=== PATIENT | male | born 1985 | race Caucasian/White ===

== ENCOUNTER → 2016-05-15 | Outpatient (CLI) | payer OTHER | END | disposition home or self-care (01) | LOC: C.PATHSPEC 17:38 | PROVIDERS: ATTEND Plastic Surgery | DX: L98.8 Other specified disorders of the skin and subcutaneous tissue (principal) ==

== ENCOUNTER → 2016-09-25 | Outpatient (CLI) | payer OTHER ==
[2016-09-25 13:42] LABS: ESTIMATED AVERAGE GLUCOSE 117 mg/dl; HA1C FLAG Normal (Normal)
[2016-09-25 13:44] LABS: ALT/SGPT 39 U/L (12-78); BLOOD UREA NITROGEN 17 mg/dl (7-18); BUN/CREATININE RATIO 17.3 (10-20); CARBON DIOXIDE 27 mmol/L (21-32); CHLORIDE 106 mmol/L (98-107); CREATININE 0.98 mg/dl (0.60-1.40); GLUCOSE 84 mg/dl (70-99); POTASSIUM 4.4 mmol/L (3.5-5.1); SODIUM 140 mmol/L (136-145)
[2016-09-25 13:46] LABS: ALB/GLOB RATIO 0.9 (0.9-2); ALKALINE PHOSPHATASE 90 U/L (45-117); AST/SGOT 23 U/L (15-37)
[2016-09-25 13:49] LABS: CALCIUM 9.6 mg/dl (8.5-10.1)
== END | disposition home or self-care (01) ==
LOC: C.LAB1850 11:50
PROVIDERS: ATTEND Family Medicine
DX: E55.9 Vitamin D deficiency, unspecified (principal); I10 Essential (primary) hypertension; R73.02 Impaired glucose tolerance (oral)

== ENCOUNTER → 2017-06-16 | Outpatient (CLI) | payer OTHER ==
[2017-06-16 09:36] LABS: HEMOGLOBIN A1C 5.5 % (4.5-5.6)
[2017-06-16 09:47] LABS: ALBUMIN 3.8 gm/dl (3.4-5.0); ALT/SGPT 44 U/L (12-78); AST/SGOT 24 U/L (15-37); BLOOD UREA NITROGEN 14 mg/dl (7-18); CARBON DIOXIDE 27 mmol/L (21-32); CREATININE 0.95 mg/dl (0.60-1.40); GLUCOSE 96 mg/dl (70-99); SODIUM 135 mmol/L (136-145)
[2017-06-16 09:59] LABS: ALKALINE PHOSPHATASE 80 U/L (45-117); CHOLESTEROL 120 mg/dl (0-200); LDL CHOLESTEROL CALCULATED 69 mg/dl; TOTAL PROTEIN 8.2 gm/dl (6.4-8.2)
== END | disposition home or self-care (01) ==
LOC: C.LAB1850 08:17
PROVIDERS: ATTEND Family Medicine
DX: R73.02 Impaired glucose tolerance (oral) (principal); E55.9 Vitamin D deficiency, unspecified; I10 Essential (primary) hypertension

== ENCOUNTER 2022-03-11 18:37 | Inpatient (IN) ==
[2022-03-11 19:56] LABS: Basophils # (auto) 0.05 K/uL (0-0.2); Basophils % (auto) 0.3 %; Eosinophils # (auto) 0.31 K/uL (0-0.50); Eosinophils % (auto) 1.7 %; Hematocrit (blood only) 43.4 % (40.1-51.0); Hemoglobin 14.9 g/dl (14.0-18.0); Immature Granulocytes # (auto) 0.22 K/uL (0.00-0.02); Immature Granulocytes % (auto) 1.2 %; Lymphocytes # (auto) 3.86 K/uL (1.2-3.4); Lymphocytes % (auto) 21.8 %; Mean Corpuscular Hemoglobin 28.3 pg (25.0-34.0); Mean Corpuscular Hgb Conc 34.3 g/dL (32.0-36.0); Mean Corpuscular Volume 82.5 fL (80.0-100.0); Mean Platelet Volume 10.4 fL (9.4-12.4); Monocytes # (auto) 1.86 K/uL (0.24-0.82); Monocytes % (auto) 10.5 %; Neutrophils # (auto) 11.44 K/uL (1.4-6.5); Neutrophils % (auto) 64.5 %; Platelet Count 385 K/uL (130-400); RDW Coefficient of Variation 12.6 % (11.5-14.5); RDW Standard Deviation 38.1 fL (36.4-46.3); Red Blood Count 5.26 M/uL (4.63-6.08); White Blood Count 17.74 K/ul (4.8-10.8)
[2022-03-11 20:26] LABS: BUN Creatinine Ratio 9.9 (10-20); Calcium 9.7 mg/dl (8.5-10.1); Creatinine Clr Calc Pharmacy 162.6 ml/min; Est GFR (Non-African American) 109.6 ml/min; Potassium 4.3 mmol/L (3.5-5.1)
[2022-03-11] MEDS ORDERED: cefTRIAXone SODIUM 2,000 MG/70 ML BAG IV STA (23:56)
[2022-03-11] MEDS ORDERED: SODIUM CHLORIDE 0.9% 1000ML 1,000 ML IV ONE (23:56)
[2022-03-11] MEDS ORDERED: VANCOMYCIN CONSULT ACTIVE PRN (23:58)
[2022-03-11] MEDS ORDERED: VANCOMYCIN HCL 2,750 MG in SODIUM CHLORIDE 0.9% 500 ML IV ONE (23:58)
--- NOTE | 2022-03-12 00:09 | History & Physical Report ---
Date of Service March 11, 2022 Assessment & Plan (1) Palpable purpura: Plan: 36 y/o male w/ morbid obesity, HTN, impaired glucose tolerance, and history of colovesical fistula s/p partial colectomy who presents w/ 10 days of worsening palpable petechial/purpuric rash of mainly his bilateral lower extremities, sparing groin areas and palms/soles. - etiology unknown, but w/ essentially negative relevant histories except of small/large intestinal and bladder fistula, leading differential is autoimmune. 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 for some etiologies, would consider organ involvement; defer echo for now - overall, nonseptic and noninfectious presentation. lower suspicion for RMSF, meningococcemia - w/ mild sinus tach and notable leukocytosis 17s; likely as part of vasculitic inflammatory process - check ESR CRP, MATTIE, ANCA, anti dsdna, calprotectin, folate, b12, RF, RMSF, HIV, hepatitis panel, peripheral smear, urinalysis, did not order STEFANIE, lupus, [employer], complement - lyme IgM equivocal; lower suspicion per HPI - antistreptolysin O Ab pending - consult rheumatology - consider biopsy to confirm cutaneous vasculitis (2) Pain and swelling of right lower extremity: Plan: - most likely 2/2 vasculitic inflammatory process - will check venous duplex to r/o dvt - cover for cellulitis for now. checking nasal mrsa. will descalate from vanc+ceftriaxone (3) History of colon resection: Plan: - per patient, fistulas from small intestine to colon to bladder were 2/2 severe diverticulosis. has since had surgery ~2 years ago and fully recovered - will consider in differential of IBD (4) Hypertension: Plan: - hold home lisinopril in setting of higher risk of BLANK in context of possible vasculitis (5) Impaired glucose tolerance: Plan: - check a1c. hold home metformin. Check glucometer HS. Glucose per AM BMP. Plan FEN/GI: HH, low Na. No maintenance IV fluids. ppx: scds only code: full dispo: med surg History of Present Illness Chief Complaint: bilateral lower extremity rash Primary Care Provider: NO PCP 36 y/o male w/ morbid obesity, HTN, impaired glucose tolerance, and history of colovesical fistula s/p partial colectomy who presents w/ 10 days of worsening rash of lower extremities. He denies history of similar. Initially, this started as a few red spots on his thighs. He started having more spots down his leg and up his lower abdomen. He denies rash of palms/soles, back, or face. Since 2 days ago, he has had erythema and discomfort from his ankle swelling, worse on right. Patient denies tick exposures, pets, recent travel, medication changes, constitu tional symptoms (fever/chills, hot/cold, unintentional weight loss), URI or GI symptoms, sick contact (works as HS teacher), STI concerns, allergen/insect exposure, IVDU, recent immunizations or family history of IBD or blood clots, or autoimmune disease. He otherwise feels at baseline. Denies tobacco, marijuana, or other substance use. Rare etoh. ED course: vanc+ceftriaxone. NSS 1L bolus. Labs notable for leukocytosis 10.04 (03/10)->17.74. Lyme IgM equivocal. Allergies Allergy/AdvReac Type Severity Reaction Status Date / Time No Known Allergies Allergy Verified 03/12/22 00:15 Home Medications Medication Instructions Recorded Confirmed Type cholecalciferol (vitamin D3) 50 2,000 units PO DAILY #30 caps 12/21/18 03/12/22 History mcg (2,000 unit) capsule cyanocobalamin (vitamin B-12) 1,000 mcg sublingual DAILY 12/21/18 03/12/22 History 1,000 mcg sublingual tablet lisinopril 10 mg tablet 10 mg PO DAILY #90 tabs 05/07/21 03/12/22 Rx metformin 500 mg tablet,extended 1,000 mg PO DAILY #180 tabs 05/07/21 03/12/22 Rx release 24 hr clindamycin phosphate 1 % topical 1 applic topical .COMPLEX #30 grams 03/03/22 03/12/22 Rx gel Past Med/Surg History Medical History (Updated 03/12/22 @ 04:47 by Guicho Hunter MD) Colovesical fistula History of diverticulitis Hypertension Impaired glucose tolerance Morbid obesity Surgical History (Updated 03/12/22 @ 03:40 by Guicho Hunter MD) H/O wrist surgery History of colon resection Family History Other Hypertension Denies family history of Ovarian cancer Prostate cancer Breast cancer Colorectal cancer Social History Smoking Status: Never smoker Second Hand Exposure: No; Do You Dip or Chew Tobacco: No; Hx Alcohol Use: Yes Alcohol type: hard liquor Hx Substance Use: No Preferred Language: Azerbaijani Communication Ability: Effective Visual Impairment: No Limitations Hearing Ability: Normal Registration Manager Required: No Beliefs That Will Affect Care: None marital status: Single Current Living Situation: Parent current occupational status: employed Other Information That Helps Us Care for You: No Feels Safe at Home: Yes Safety Concerns: Feels Safe At This Time caffeine: Yes Dental Care, Regularly: Yes Seatbelt Use: always Assistive Devices: Contacts Review of Systems Review of Systems: All systems reviewed & are unremarkable except as noted in HPI & below Denies paresthesias, diarrhea, vomiting, bloody stool, melena, dysuria, chest pain, SOB. No blurry vision. 20 lb intentional wt loss past year, on metformin. + mild headache, attributes to not eating Physical Exam Physical Exam: General: Grossly A&O. NAD. Cooperative. HEENT: Atraumatic, normocephalic. EOMI. PERRL. Pulm: CTAB. -wheezes, -rales, -rhonchi. No respiratory distress. Cardiac: RRR, -mrg. R ankle w/ 2+ pitting edema. Abdominal: Nontender, nondistended, soft. Integ: Numerous non confluent 5mm-3cm circular palpable petechial vs purpuric lesions of bilateral lower extremity from thighs down to ankles, reportedly sparing groin area. Non-blanching. There is similar rassh of lower abd, but more confluent at that location. No rash of back. No facial or mucosal involvement. R ankle w/ erythema and warmth to touch. Neuro: No focal deficits. Results & Data Results & Data ([facility]) Vital Signs (Past 12 Hours) Vital Signs Temp Pulse Resp BP Pulse Ox O2 Del Method 03/11/22 19:13 37 C 97 H 18 154/91 H 98 Room Air Laboratory Results CBC 03/11/22 Range/Units 19:23 WBC 17.74 H (4.8-10.8) K/ul RBC 5.26 (4.63-6.08) M/uL Hgb 14.9 (14.0-18.0) g/dl Hct 43.4 (40.1-51.0) % Plt Count 385 (130-400) K/uL Neut # (Auto) 11.44 H (1.4-6.5) K/uL Lymph # (Auto) 3.86 H (1.2-3.4) K/uL [place] # (Auto) 1.86 H (0.24-0.82) K/uL Eos # (Auto) 0.31 (0-0.50) K/uL Baso # (Auto) 0.05 (0-0.2) K/uL Comprehensive Metabolic Panel 03/11/22 Range/Units 19:23 Sodium 137 (136-145) mmol/L Potassium 4.3 D (3.5-5.1) mmol/L Chloride 103 (98-107) mmol/L Carbon Dioxide 27 (21-32) mmol/L BUN 9 (6-23) mg/dl Creatinine 0.91 (0.6-1.4) mg/dl Glucose 80 (70-99(Fasting)) mg/dl Calcium 9.7 (8.5-10.1) mg/dl Intake and Output 03/11/22 03/11/22 03/12/22 14:59 22:59 06:59 Other: Weight 141.7 kg Weight Measurement Method Chair Scale Patient Weight 03/12/22 06:59 Weight 141.7 kg CBC Results Results Complete Blood Count Results: RBC 5.00 M/uL (4.63-6.08) 03/12/22 WBC 16.22 K/ul (4.8-10.8) H 03/12/22 Hgb 14.3 g/dl (14.0-18.0) 03/12/22 Hct 41.9 % (40.1-51.0) 03/12/22 Plt Count 351 K/uL (130-400) 03/12/22 Code Status & VTE Plan Code Status full VTE Prophylaxis Plan VTE Prophylaxis will be ordered: Yes Supervising Physician Co-Signing Physician Notes Patient seen and examined, chart reviewed, case discussed with Dr. Hunter and I agre e with the assessment and plan as above Patient with palpable purpura and petechial rash on bilateral LE as well as pain in bilateral ankles, swelling in left No additional constitutional symptoms No personal history of autoimmune disease On exam patient has non-blanchable petechiae and purpura on bilateral LE Right ankle and calf warm, tender, swollen No mucosal lesions No rash on palms or soles No other findings Labs and images reviewed Purpuric rash concerning for vasculitis - infectious vs inflammatory -Check rheumatologic labs -Check tick borne labs -Rheumatology consultation appreciated -Check doppler RLE -Remainder as above Resident Activity Tracking Resident Involvement: Resident Care Provided Care Provided: Adult [facility]
--- NOTE | 2022-03-12 00:19 | Emergency Department Note ---
Impression & Plan Cellulitis, Petechial rash, Leukocytosis ED Provider Note NAME: ARA ESTRADA III AGE: 36 SEX: M : 1985 ARRIVES VIA: Walk-In INFORMANT: Patient ED PROVIDER(S): Edy Quintero DO CHIEF COMPLAINT: rash and leg pain HPI: Patient is a 36-year-old male who presents to the ER for rash in his bilateral lower extremities. Patient notes that this has progressed over the past week. Mom checked blood work as an outpatient and was equivocal for Lyme but otherwise was fairly unremarkable. Redness on the right vasquez occurred within the past 24 hours and has been spreading. Patient admits to feeling cold. No headache or change in vision. No chest pain or shortness of breath. No nausea, vomiting, or diarrhea. No dysuria, urgency, or frequency. No other exacerbating or remitting factors. Previous history of diverticulitis but otherwise unremarkable history. No tick bites that he is aware of. ROS: See above HPI for pertinent positives & negatives. A total of 10 systems reviewed and were otherwise negative. PAST MEDICAL HISTORY:See Below PAST SURGICAL HISTORY:See Below FAMILY HISTORY:See Below SOCIAL HISTORY:See Below HOME MEDICATIONS:See Below ALLERGIES:See Below VITALS:See Below PHYSICAL EXAMINATION: GENERAL: Sitting up in bed, alert, well appearing, well nourished, no distress, non-toxic EYE EXAM: normal conjunctiva. OROPHARYNX:mucous membranes are moist LUNGS: Clear to auscultation. Normal chest wall mechanics HEART: no murmurs, S1 normal and S2 normal ABDOMEN: abdomen soft, non-tender, normo-active bowel sounds, no masses, no re bound or guarding. BACK: Back is symmetrical on inspection and there is no deformity, no midline te nderness, no CVA tenderness. SKIN: Palpable purpura bilateral which are nonblanching. Negative Nikolsky. Skin is warm and erythematous and tender on the right lower vasquez circumferentially. DPs are 2 out of 4. UPPER EXTREMITIES: upper extremities are grossly normal. LOWER EXTREMITIES: No pitting edema. NEURO EXAM: Normal sensorium, cranial nerves II-XII grossly intact, normal speech, no gross weakness of arms, no gross weakness of legs. MEDICAL DECISION MAKING: Patient is a 36-year-old male who presents to the ER for the above complaint. IV was established blood work was obtained. Labs show leukocytosis of 17.7 thousand. No significant anemia. BMP was unremarkable. Patient did have a recent equivocal Lyme test which was drawn this week in the workup for the rash. With this he was given IV Rocephin. Also placed on Vanco in case there is MRSA as mom and Dad are physicians. Patient was updated bedside. Discussed with Sona White for further evaluation. Triage Nursing notes reviewed. Limited review of prior medical records performed Vital Signs: reviewed and remarkable for tachy and HTN Differential diagnosis: Cellulitis, abscess, MRSA infection, DVT, necrotizing fasciitis, dermatitis, gerardo g eruption, allergic reaction, as well as other pathologies. ER treatment provided: See below Diagnostics interpreted by me: ECG: none Cardiac Monitoring: An order was placed for continuous cardiac monitoring. The monitor shows a rate of 92 with sinus rhythm. Laboratory studies: As stated above and show below. Imaging studies: See below Consultation(s): Discussed with Sona White for further evaluation Procedures: none Critical Care: None Past Med/Surg History Surgical History (Updated 03/12/22 @ 00:29 by Guicho Hunter MD) H/O wrist surgery History of colon resection Family History Other Hypertension Denies family history of Ovarian cancer Prostate cancer Breast cancer Colorectal cancer Social History Smoking Status: Never smoker Second Hand Exposure: No; Hx Alcohol Use: Yes Hx Substance Use: No Preferred Language: Mohawk Visual Impairment: No Limitations Hearing Ability: Normal Beliefs That Will Affect Care: None marital status: Single Current Living Situation: Family current occupational status: employed Feels Safe at Home: Yes caffeine: Yes Dental Care, Regularly: Yes Seatbelt Use: always Allergies Allergies Allergy/AdvReac Type Severity Reaction Status Date / Time No Known Allergies Allergy Verified 03/12/22 00:15 Home Meds Home Medications Medication Instructions Recorded Confirmed cholecalciferol (vitamin D3) 50 2,000 units PO DAILY #30 caps 12/21/18 03/12/22 mcg (2,000 unit) capsule cyanocobalamin (vitamin B-12) 1,000 mcg sublingual DAILY 12/21/18 03/12/22 1,000 mcg sublingual tablet Previous Rx's Medication Instructions Recorded lisinopril 10 mg tablet 10 mg PO DAILY #90 tabs 05/07/21 metformin 500 mg tablet,extended 1,000 mg PO DAILY #180 tabs 05/07/21 release 24 hr clindamycin phosphate 1 % topical 1 applic topical .COMPLEX #30 grams 03/03/22 gel Results & Data (ED) Vital Signs Vital Signs - 24 hr 03/11/22 19:13 03/12/22 01:11 Temperature 37 C Temperature Source Temporal Artery Scan Pulse Rate 97 H Pulse Rate [Apical] 109 H Pulse Rhythm [Apical] Regular Pulse Strength [Apical] Normal Respiratory Rate 18 18 Respiratory Effort / Characteristics Non-Labored Spontaneous Respiratory Depth Normal Respiratory Pattern Regular Blood Pressure 154/91 H Blood Pressure [Left Arm] 132/82 Blood Pressure Mean 112 Blood Pressure Mean [Left Arm] 98 Blood Pressure Position [Left Arm] Semi-fowlers Pulse Oximetry 98 96 Oxygen Delivery Method Room Air Room Air Sepsis Recent Fever Within 48 Hours No Sepsis New/Unexplained Change in Mental Status No Sepsis Action Taken by Nursing No Action Required Laboratory Data Result diagrams: 03/11/22 19:23 03/11/22 19:23 Lab Results 03/11/22 03/11/22 03/12/22 Range/Units 19:23 19:23 00:32 WBC 17.74 H (4.8-10.8) K/ul RBC 5.26 (4.63-6.08) M/uL Hgb 14.9 (14.0-18.0) g/dl Hct 43.4 (40.1-51.0) % MCV 82.5 (80.0-100.0) fL MCH 28.3 (25.0-34.0) pg MCHC 34.3 (32.0-36.0) g/dL RDW Std Deviation 38.1 (36.4-46.3) fL RDW Coeff of Yossi 12.6 (11.5-14.5) % Plt Count 385 (130-400) K/uL MPV 10.4 (9.4-12.4) fL Immature Gran % (Auto) 1.2 % Neut % (Auto) 64.5 % Lymph % (Auto) 21.8 % [place] % (Auto) 10.5 % Eos % (Auto) 1.7 % Baso % (Auto) 0.3 % Neut # (Auto) 11.44 H (1.4-6.5) K/uL Lymph # (Auto) 3.86 H (1.2-3.4) K/uL [place] # (Auto) 1.86 H (0.24-0.82) K/uL Eos # (Auto) 0.31 (0-0.50) K/uL Baso # (Auto) 0.05 (0-0.2) K/uL Immature Gran # (Auto) 0.22 H (0.00-0.02) K/uL Sodium 137 (136-145) mmol/L Potassium 4.3 D (3.5-5.1) mmol/L Chloride 103 (98-107) mmol/L Carbon Dioxide 27 (21-32) mmol/L Anion Gap 7 (3-11) BUN 9 (6-23) mg/dl Creatinine 0.91 (0.6-1.4) mg/dl Est Cr Clr Drug Dosing 162.6 ml/min Est GFR ( Amer) 127.0 ml/min Est GFR (Non-Af Amer) 109.6 ml/min BUN/Creatinine Ratio 9.9 L (10-20) Glucose 80 (70-99(Fasting)) mg/dl Calcium 9.7 (8.5-10.1) mg/dl SARS-CoV-2, RNA, NAAT NEGATIVE (NEGATIVE) Administered Medications Vancomycin HCl 2,750 mg/ (Sodium Chloride) 555 mls @ 200 mls/hr IV NOW ONE Stop: 03/12/22 02:44 Last Admin: 03/12/22 01:06 Dose: 200 mls/hr Documented By: MARYJANE Discontinued Medications Sodium Chloride (Nss 1000ml) 1,000 mls @ 999 mls/hr IV .Q1H1M ONE Stop: 03/12/22 00:56 Last Infusion: 03/12/22 01:30 Dose: 0 mls/hr Documented By: Admin: 03/12/22 00:25 Dose: 999 mls/hr Documented By: MARYJANE Ceftriaxone Sodium (Rocephin) 2,000 mg in 70 mls @ 140 mls/hr IV NOW STA Stop: 03/12/22 00:25 Last Infusion: 03/12/22 01:05 Dose: 0 mls/hr Documented By: Admin: 03/12/22 00:26 Dose: 140 mls/hr Documented By: MARYJANE Discharge Plan Visit Data Chief Complaint: Leg Injury/Pain Stated Complaint: CELLULITIS IN BOTH LEGS ED Provider: Edy Quintero Discharge Problem: Cellulitis, Petechial rash, Leukocytosis Forms Stand Alone Forms: My [facility] IPX Prescriptions Prescriptions: No Action lisinopril 10 mg tablet 10 mg PO DAILY Qty: 90 3RF metformin 500 mg tablet extended release 24 hr 1,000 mg PO DAILY Qty: 180 3RF clindamycin phosphate 1 % gel 1 applic topical .COMPLEX Qty: 30 2RF Rx Instructions: 1 applic topical apply and gently massaginto affected area(s) TID ; cholecalciferol (vitamin D3) 2,000 unit capsule 2,000 units PO DAILY Qty: 30 cyanocobalamin (vitamin B-12) 1,000 mcg tablet, sublingual 1,000 mcg SL DAILY Referrals Referrals: PCP,NO [Physician] -
[2022-03-12 04:40] LABS: Basophils # (auto) 0.05 K/uL (0-0.2); Basophils % (auto) 0.3 %; Eosinophils # (auto) 0.11 K/uL (0-0.50); Eosinophils % (auto) 0.7 %; Hematocrit (blood only) 41.9 % (40.1-51.0); Hemoglobin 14.3 g/dl (14.0-18.0); Immature Granulocytes # (auto) 0.08 K/uL (0.00-0.02); Immature Granulocytes % (auto) 0.5 %; Lymphocytes # (auto) 2.37 K/uL (1.2-3.4); Lymphocytes % (auto) 14.6 %; Mean Corpuscular Hemoglobin 28.6 pg (25.0-34.0); Mean Corpuscular Hgb Conc 34.1 g/dL (32.0-36.0); Mean Corpuscular Volume 83.8 fL (80.0-100.0); Mean Platelet Volume 10.1 fL (9.4-12.4); Monocytes # (auto) 1.59 K/uL (0.24-0.82); Monocytes % (auto) 9.8 %; Neutrophils # (auto) 12.02 K/uL (1.4-6.5); Neutrophils % (auto) 74.1 %; Platelet Count 351 K/uL (130-400); RDW Coefficient of Variation 12.8 % (11.5-14.5); RDW Standard Deviation 38.9 fL (36.4-46.3); White Blood Count 16.22 K/ul (4.8-10.8)
[2022-03-12] MEDS ORDERED: ONDANSETRON INJ 2 MG/ML 2 ML VIAL IV PRN (04:58)
[2022-03-12 05:03] LABS: RBC Morphology Unremarkable
[2022-03-12] MEDS ORDERED: FLUARIX QUADRIVALENT 0.5 ML SYR IM ONE (05:12)
[2022-03-12 05:28] LABS: Albumin Globulin Ratio 1.2 (0.9-2); Albumin Level 4.3 gm/dl (3.4-5.0); BUN Creatinine Ratio 8.5 (10-20); Bilirubin,Total 0.9 mg/dl (0.2-1.0); C Reactive Protein 4.37 mg/dl (0-0.5); Calcium 9.3 mg/dl (8.5-10.1); Creatinine Clr Calc Pharmacy 156.7 ml/min; Est GFR (African American) 122.1 ml/min; Est GFR (Non-African American) 105.4 ml/min; Globulin 3.7 gm/dl (2.5-4.0); Magnesium 1.7 mg/dl (1.7-2.4)
[2022-03-12] MEDS: ACETAMINOPHEN 325 MG TAB PO PRN ×2 (05:36→21:15)
[2022-03-12 05:38] LABS: Appearance Urine Clear (Clear); Bacteria Urine Automated Negative (Negative); Bilirubin Urine Negative (Negative); Blood Urine Trace (Negative); Cast Urine Automated 0 /lpf (0-5); Color Urine Yellow; Epithelial Cell Urine Auto 0-5 /lpf (0-5); Glucose Urine UA Negative (Negative); Ketones Urine Negative (Negative); Leukocyte Esterase Urine Negative (Negative); Nitrite Urine Negative (Negative); Protein Urine Negative (Negative); RBC Urine Automated 0-4 /hpf (0-4); Specific Gravity Urine 1.011 (1.000-1.030); Urobilinogen Urine Negative (Negative); WBC Urine Automated 0 /hpf (0-5)
[2022-03-12 06:00] LABS: Partial Thromboplastin Time 28.6 Seconds (21.0-31.0); Prothrombin Time 11.1 Seconds (9.0-12.0)
--- NOTE | 2022-03-12 07:33 | Billing Data ---
Date of Service March 12, 2022 Coding Level of Care Code 02015 Initial Inpt Care Lvl 2
--- NOTE | 2022-03-12 07:57 | Hospitalist Progress Note ---
Date of Service March 12, 2022 Assessment & Plan (1) Palpable purpura: Plan: 36 y/o male w/ morbid obesity, HTN, impaired glucose tolerance, and history of colovesical fistula s/p partial colectomy who presents w/ 10 days of worsening palpable petechial/purpuric rash of mainly his bilateral lower extremities, sparing groin areas and palms/soles. - etiology unknown, but w/ essentially negative relevant histories except of small/large intestinal and bladder fistula, leading differential is autoimmune. 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 for some etiologies, would consider organ involvement; defer echo for now - overall, nonseptic and noninfectious presentation. lower suspicion for RMSF, meningococcemia - w/ mild sinus tach and notable leukocytosis 17s; likely as part of vasculitic inflammatory process - check ESR CRP, MATTIE, ANCA, anti dsdna, calprotectin, folate, b12, RF, RMSF, HIV, hepatitis panel, peripheral smear, urinalysis, did not order STEFANIE, lupus, BRICK PAVER, complement ESR CRP WBC elevated - lyme IgM equivocal; lower suspicion per HPI - antistreptolysin O Ab pending - consult rheumatology, consider stopping abx starting prednisone 30mg daily for possible leukocytoclastic vasculitis - consider biopsy to confirm cutaneous vasculitis - consulted dermatology (2) Pain and swelling of right lower extremity: Plan: - most likely 2/2 vasculitic inflammatory process - venous duplex negative - cover for cellulitis for now. nasal mrsa negative. started vanc+ceftriaxone, dc'd (3) History of colon resection: Plan: - per patient, fistulas from small intestine to colon to bladder were 2/2 severe diverticulosis. has since had surgery ~2 years ago and fully recovered - will consider in differential of IBD (4) Hypertension: Plan: - hold home lisinopril in setting of higher risk of BLANK in context of possible vasculitis (5) Impaired glucose tolerance: Plan: - check a1c. hold home metformin. Check glucometer HS. Glucose per AM BMP. Plan FEN/GI: HH, low Na. No maintenance IV fluids. ppx: scds only code: full dispo: med surg Admission and Anticipated Discharge Date Admission Date: March 12, 2022 Supervising Physician Co-Signing Physician Notes I also saw the patient and confirmed johnson portion of the history and physical examination. I also spoke with the on-call contestant coordinator via phone. I agree with impression and plan as noted in resident documentation. 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 He reports feeling generally wellno preceding viral type symptomsbut noted developing a rash on his right thigh which looks like a folliculitis. This was not pruritic nor painful. By Thursday morning, he had noted a more red flat rash on the bilateral lower extremities and across the lower abdominal wall (bilaterally, and inferior of the umbilicus). Again, the patient felt well throughout all of thisno fever, chills, sore throat, night sweats, fatigue, nausea, vomiting, or loose stools. No known sick contacts, although certainly with possible exposure given his occupation. Exam 122/77, 97, 16, 36.5, 96% on room air He is pleasant alert. No distress is appreciated. Neck is supple. There is no lymphadenopathy in the anterior cervical nor post anterior cervical regions. Mucous membranes are pink and moist. Posterior pharynx appears clear. Heart regular rate and rhythm Respirations are nonlabored and lungs are clear The abdomen is soft and nontender He has a flat, petechial type rash across his lower abdominal area and his lower legs, bilaterally, and fairly symmetrical. While there are a few raised more follicular type lesions on the right lower leg, most of the lesions are flat/nonpalpable. All are nonblanchable He does have some mild edema at both ankles bilaterally. Data WBC 17.74, 16.22 Hemoglobin 14.9, 14.3 Platelet count 325, 351 PT/PTT normal Sodium 137, potassium 4.0, BUN 8, creatinine 0.94 Hemoglobin A1c 5.5% AST 18, ALT 21, alkaline phosphatase 85 CRP 4.37 ESR 37 EBV, CMV titers negative. Hepatitis panel pending HIV negative. Rickettsia pending COVID negative ASO titer pending Imaging Venous Doppler of the right lower extremity is negative for DVT Impression and Plan Folliculitis versus vasculitis, favor the latter Specifically, a leukocytoclastic vasculitis. Discontinue antibiotics Start prednisone 30 mg daily Autoimmune studies are pending Lyme RAMESH was equivocal, suspect this is a false positive; Western blot pend ing Repeat CBC, CMP, ESR, and CRP in AM Dermatology will be able to see tomorrow, and could consider punch biopsy Else, if all goes well, anticipate discharge tomorrow with outpatient rheumatology follow-up arranged for early next week Subjective Patient seen at bedside, calm comfortable cooperative. He states that 10 days ago the rash on his thigh started, never had itching pain denies exposure to new clothing soaps medications, no one around has similar rashes. over the next 5 days he descoverd a similar looking rash on his abdomen, later found it was also on his legs and tops of his feet. Never appeared on soles of feet, groin area, back, chest, face, arms. Yesterday noted swelling tightness in his right leg. He has PMH raynauds, had colon resection due to severe diverticulosis with colovesicular fistula. He denies fever chills SOB chest pain abd pain diarrhea constipation weakness fatigue change in sensation. He is a high school industrial arts teacher. 2 weeks ago [place] and had to walk by a park. Review of Systems Review of Systems: see hpi Physical Exam Constitutional: WD/WN, vitals as above Eyes: PERRL, conjunctivae normal, anicteric sclerae ENMT: external ear and nose normal, oropharynx normal Neck: trachea midline, no thyromegaly Respiratory: normal respiratory effort, lungs clear to auscultation Cardiovascular: RRR, no murmur, no edema Gastrointestinal (Abdomen): Inspection/Auscultation: abdomen normal to inspection and + abdominal surgical scar Percussion/Palpation: abdomen soft; abdomen nontender Skin: diffuse evenly distributed papular petecheia noted across thighs legs feet sparing the soles, erythematous nonblanching. Similar more macular rash noted on lower anterior abdomen. No rashes noted on chest back arms of face. Results & Data Results & Data ([facility]) Vital Signs (Past 12 Hours) Vital Signs Temp Pulse Pulse Pulse Resp BP BP 03/12/22 05:01 37.6 C H 106 H 18 03/12/22 04:23 112 H 18 120/74 03/12/22 04:00 112 H 18 120/74 03/12/22 01:11 109 H 18 132/82 BP Pulse Ox O2 Del Method 03/12/22 05:01 140/86 94 Room Air 03/12/22 04:23 96 Room Air 03/12/22 04:00 95 Room Air 03/12/22 01:11 96 Room Air Diagnostic Findings Laboratory Results WBC 16.22 K/ul (4.8-10.8) H 03/12/22 03:39 RBC 5.00 M/uL (4.63-6.08) 03/12/22 03:39 Hgb 14.3 g/dl (14.0-18.0) 03/12/22 03:39 Hct 41.9 % (40.1-51.0) 03/12/22 03:39 MCV 83.8 fL (80.0-100.0) 03/12/22 03:39 MCH 28.6 pg (25.0-34.0) 03/12/22 03:39 MCHC 34.1 g/dL (32.0-36.0) 03/12/22 03:39 RDW Std Deviation 38.9 fL (36.4-46.3) 03/12/22 03:39 RDW Coeff of Yossi 12.8 % (11.5-14.5) 03/12/22 03:39 Plt Count 351 K/uL (130-400) 03/12/22 03:39 MPV 10.1 fL (9.4-12.4) 03/12/22 03:39 Immature Gran % (Auto) 0.5 % 03/12/22 03:39 Neut % (Auto) 74.1 % 03/12/22 03:39 Lymph % (Auto) 14.6 % 03/12/22 03:39 [place] % (Auto) 9.8 % 03/12/22 03:39 Eos % (Auto) 0.7 % 03/12/22 03:39 Baso % (Auto) 0.3 % 03/12/22 03:39 Neut # (Auto) 12.02 K/uL (1.4-6.5) H 03/12/22 03:39 Lymph # (Auto) 2.37 K/uL (1.2-3.4) 03/12/22 03:39 [place] # (Auto) 1.59 K/uL (0.24-0.82) H 03/12/22 03:39 Eos # (Auto) 0.11 K/uL (0-0.50) 03/12/22 03:39 Baso # (Auto) 0.05 K/uL (0-0.2) 03/12/22 03:39 Immature Gran # (Auto) 0.08 K/uL (0.00-0.02) H 03/12/22 03:39 RBC Morphology Unremarkable 03/12/22 03:39 Peripher Smr Path Cons 03/12/22 03:39 ESR 37 mm/hr (0-15) H 03/12/22 03:39 PT 11.1 Seconds (9.0-12.0) 03/12/22 05:32 INR 1.0 (0.9-1.1) 03/12/22 05:32 APTT 28.6 Seconds (21.0-31.0) 03/12/22 05:32 PTT Ratio 1.0 03/12/22 05:32 Sodium 137 mmol/L (136-145) 03/12/22 03:39 Potassium 4.0 mmol/L (3.5-5.1) 03/12/22 03:39 Chloride 104 mmol/L (98-107) 03/12/22 03:39 Carbon Dioxide 25 mmol/L (21-32) 03/12/22 03:39 Anion Gap 8 (3-11) 03/12/22 03:39 BUN 8 mg/dl (6-23) 03/12/22 03:39 Creatinine 0.94 mg/dl (0.6-1.4) 03/12/22 03:39 Est Cr Clr Drug Dosing 156.7 ml/min 03/12/22 03:39 Est GFR ( Amer) 122.1 ml/min 03/12/22 03:39 Est GFR (Non-Af Amer) 105.4 ml/min 03/12/22 03:39 BUN/Creatinine Ratio 8.5 (10-20) L 03/12/22 03:39 Glucose 111 mg/dl (70-99(Fasting)) H 03/12/22 03:39 Estimat Average Glucose 111 mg/dl 03/12/22 05:32 Hemoglobin A1c 5.5 % (4.5-5.6) 03/12/22 05:32 Calcium 9.3 mg/dl (8.5-10.1) 03/12/22 03:39 Magnesium 1.7 mg/dl (1.7-2.4) 03/12/22 03:39 Total Bilirubin 0.9 mg/dl (0.2-1.0) D 03/12/22 03:39 AST 18 U/L (13-39) 03/12/22 03:39 ALT 21 U/L (7-52) 03/12/22 03:39 Alkaline Phosphatase 85 U/L (34-104) 03/12/22 03:39 C-Reactive Protein 4.37 mg/dl (0-0.5) H 03/12/22 03:39 Total Protein 8.0 gm/dl (6.0-8.3) 03/12/22 03:39 Albumin 4.3 gm/dl (3.4-5.0) 03/12/22 03:39 Globulin 3.7 gm/dl (2.5-4.0) 03/12/22 03:39 Albumin/Globulin Ratio 1.2 (0.9-2) 03/12/22 03:39 Folate 11.02 ng/ml (>5.38) 03/12/22 05:32 Urine Color Yellow 03/12/22 05:15 Urine Appearance Clear (Clear) 03/12/22 05:15 Urine pH 8.0 (4.5-7.5) H 03/12/22 05:15 Ur Specific Peck 1.011 (1.000-1.030) 03/12/22 05:15 Urine Protein Negative (Negative) 03/12/22 05:15 Urine Glucose (UA) Negative (Negative) 03/12/22 05:15 Urine Ketones Negative (Negative) 03/12/22 05:15 Urine Blood Trace (Negative) H 03/12/22 05:15 Urine Nitrite Negative (Negative) 03/12/22 05:15 Urine Bilirubin Negative (Negative) 03/12/22 05:15 Urine Urobilinogen Negative (Negative) 03/12/22 05:15 Ur Leukocyte Esterase Negative (Negative) 03/12/22 05:15 Urine WBC (Auto) 0 /hpf (0-5) 03/12/22 05:15 Urine RBC (Auto) 0-4 /hpf (0-4) 03/12/22 05:15 U Hyaline Cast (Auto) 0 /lpf (0-5) 03/12/22 05:15 U Epithel Cells (Auto) 0-5 /lpf (0-5) 03/12/22 05:15 Urine Bacteria (Auto) Negative (Negative) 03/12/22 05:15 Nasal Screen MRSA (PCR) Negative (Negative) 03/12/22 05:15 SARS-CoV-2, RNA, NAAT NEGATIVE (NEGATIVE) 03/12/22 00:32 Impressions Venous Doppler Study 03/12/22 02:46 US venous doppler LE RT CLINICAL HISTORY: asymmetric swelling and erythea TECHNIQUE: Right lower extremity real-time compression venous ultrasound with Color Doppler imaging. Utilizing real-time ultrasonic imaging multiple real time high-resolution ultrasonic images with compression and noncompression maneuvers of the deep venous system in addition to color doppler imaging were performed from the common femoral vein through the proximal calf veins. COMPARISON: None available at the time of this dictation. FINDINGS: Exam is limited by body habitus. Currently there is normal compressibility of the deep venous system from the common femoral vein through the proximal calf veins. No superficial venous thrombosis is identified. Impression: No evidence of deep venous thrombus. ACT 112: Negative or not required by law. Electronically signed by: Adin Willingham M.D. 03/12/2022 8:45 AM Medications Administered Current Inpatient Medications Acetaminophen (Acetaminophen 325 Mg Tab) 650 mg PO Q4H PRN PRN Reason: pain/fever Stop: 04/11/22 04:57 Last Admin: 03/12/22 05:36 Dose: 650 mg Ondansetron HCl (Ondansetron Inj 2 Mg/Ml 2 Ml Vial) 4 mg IV Q6H PRN PRN Reason: Nausea Stop: 04/11/22 04:57 Prednisone (Prednisone 10 Mg Tablet) 30 mg PO DAILY DANNY Stop: 04/11/22 16:59 Resident Activity Tracking Resident Involvement: Resident Care Provided Care Provided: Adult Hospital Medicine
--- NOTE | 2022-03-12 08:47 | Ultrasound Report ---
US venous doppler LE RT CLINICAL HISTORY: asymmetric swelling and erythea TECHNIQUE: Right lower extremity real-time compression venous ultrasound with Color Doppler imaging. Utilizing real-time ultrasonic imaging multiple real time high-resolution ultrasonic images with comp ression and noncompression maneuvers of the deep venous system in addition to color doppler imaging w ere performed from the common femoral vein through the proximal calf veins. COMPARISON: None available at the time of this dictation. FINDINGS: Exam is limited by body habitus. Currently there is normal compressibility of the deep venous system from the common femoral vein through the proximal calf veins. No superficial venous thrombosis is id entified. Impression: No evidence of deep venous thrombus. ACT 112: Negative or not required by law. Electronically signed by: Adin Willingham M.D. 03/12/2022 8:45 AM
[2022-03-12 09:18] LABS: Estimated Average Glucose 111 mg/dl; Hemoglobin A1C 5.5 % (4.5-5.6)
--- NOTE | 2022-03-12 14:11 | Electrocardiogram Report ---
Test Reason : Blood Pressure : / mmHG Vent. Rate : 099 BPM Atrial Rate : 099 BPM P-R Int : 156 ms QRS Dur : 092 ms QT Int : 354 ms P-R-T Axes : 042 066 028 degrees QTc Int : 454 ms Normal sinus rhythm Normal ECG No previous ECGs available Confirmed by Andres Jesus ([id number]) on 03/12/2022 2:10:49 PM Referred By: REFERRED SELF Confirmed By:Blayne Jesus
[2022-03-12] MEDS: predniSONE 10 MG TABLET PO SCH (17:46)
[2022-03-13] MEDS ORDERED: cefTRIAXone SODIUM 2,000 MG in DEXTROSE 5% 50 ML IV SCH
--- NOTE | 2022-03-13 06:59 | Hospitalist Progress Note ---
Date of Service March 13, 2022 Assessment & Plan (1) Palpable purpura: Plan: 36 y/o male w/ morbid obesity, HTN, impaired glucose tolerance, and history of colovesical fistula s/p partial colectomy who presents w/ 10 days of worsening palpable petechial/purpuric rash of mainly his bilateral lower extremities, sparing groin areas and palms/soles. - etiology unknown, but w/ essentially negative relevant histories except of small/large intestinal and bladder fistula, leading differential is autoimmune. 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 for some etiologies, would consider organ involvement; defer echo for now - overall, nonseptic and noninfectious presentation. 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 nasal mrsa negative. started vanc+ceftriaxone, dc'd (3) History of colon resection: Plan: - per patient, fistulas from small intestine to colon to bladder were 2/2 severe diverticulosis. has since had surgery ~2 years ago and fully recovered - will consider in differential of IBD (4) Hypertension: Plan: - hold home lisinopril in setting of higher risk of BLANK in context of possible vasculitis (5) Impaired glucose tolerance: Plan: - check a1c. hold home metformin. Check glucometer HS. Glucose per AM BMP. Plan FEN/GI: HH, low Na. No maintenance IV fluids. ppx: scds only code: full dispo: med surg Admission and Anticipated Discharge Date Admission Date: March 12, 2022 Results & Data Results & Data ([facility]) Vital Signs (Past 12 Hours) Vital Signs Temp Pulse Resp BP Pulse Ox O2 Del Method 03/12/22 21:10 37.1 C 107 H 20 141/78 H 93 Room Air
[2022-03-13] MEDS: predniSONE 10 MG TABLET PO SCH (08:50)
[2022-03-13 09:25] LABS: Basophils # (auto) 0.04 K/uL (0-0.2); Basophils % (auto) 0.3 %; Eosinophils # (auto) 0.21 K/uL (0-0.50); Eosinophils % (auto) 1.6 %; Hematocrit (blood only) 39.9 % (40.1-51.0); Hemoglobin 13.6 g/dl (14.0-18.0); Immature Granulocytes # (auto) 0.09 K/uL (0.00-0.02); Immature Granulocytes % (auto) 0.7 %; Lymphocytes # (auto) 2.82 K/uL (1.2-3.4); Lymphocytes % (auto) 21.3 %; Mean Corpuscular Hemoglobin 28.6 pg (25.0-34.0); Mean Corpuscular Hgb Conc 34.1 g/dL (32.0-36.0); Mean Platelet Volume 9.8 fL (9.4-12.4); Monocytes # (auto) 0.96 K/uL (0.24-0.82); Monocytes % (auto) 7.2 %; Neutrophils # (auto) 9.13 K/uL (1.4-6.5); Neutrophils % (auto) 68.9 %; Platelet Count 327 K/uL (130-400); RDW Coefficient of Variation 12.8 % (11.5-14.5); RDW Standard Deviation 39.3 fL (36.4-46.3); Red Blood Count 4.75 M/uL (4.63-6.08); White Blood Count 13.25 K/ul (4.8-10.8)
[2022-03-13 09:49] LABS: Albumin Globulin Ratio 1.1 (0.9-2); BUN Creatinine Ratio 10.7 (10-20); Bilirubin,Total 0.7 mg/dl (0.2-1.0); C Reactive Protein 12.98 mg/dl (0-0.5); Calcium 9.3 mg/dl (8.5-10.1); Creatinine Clr Calc Pharmacy 196.4 ml/min; Est GFR (African American) 138.7 ml/min; Est GFR (Non-African American) 119.7 ml/min; Globulin 3.7 gm/dl (2.5-4.0); Potassium 3.4 mmol/L (3.5-5.1); Total Protein 7.7 gm/dl (6.0-8.3)
--- NOTE | 2022-03-13 12:47 | Dermatology Consultation ---
Date of Consultation March 13, 2022 Assessment & Plan (1) Vasculitis: Cutaneous small vessel vasculitis: Etiology is not completely clear based on his history. This may have been triggered by a subclinical infection, but we discussed that >50% of cases often get classified as idiopathic despite history and systemic workup. His systemic workup has been unrevealing to this point, but serologies are still pending. ROS is unremarkable, and current skin involvement is asymptomatic. Biopsy is unlikely to change manager in this case at this point and also may be nondiagnostic given his current clinical appearance and the fact that he has already had 2 days of prednisone. Recommend the followin) Continue prednisone taper slowly over the next 14 days. 2) Follow-up serology testing for any occult underlying trigger. 3) I know that rheumatology has also been involved somewhat in this case. Re commend follow-up with either dermatology or rheumatology 1-2 weeks after discharge to check status as prednisone is being tapered off. Thanks for the consult. Call [facility] any questions. Present on Admission?: Yes History of Present Illness Reason for Consultation: Rash on legs Attending Physician: Nacho Ortega, DO History of Present Illness Patient is a 36 y/o male admitted to [facility] on 03/12/2022 with rash involving the bilateral lower legs and lower abdomen. He has a PMHx significant for HTN, impaired glucose tolerance, obesity and history of colovesical fistula s/p par tial colectomy. He reports waking up 12 days ago with a few small red lesions on the upper thighs. They were asymptomatic. Over the following week he gradually developed additional lesions on the lower legs and dorsal feet. He denies any itching, burning or pain. He did not treat the areas at home. He started to notice some swelling in his bilateral ankles (R > L) prior to presenting to [facility] ER on 03/12/2022. He denies experiencing any systemic symptoms, GI upset, nausea, vomiting, sore throat or nasal congestion. He denies any new medications or recent infections in the 1-2 weeks prior to onset of the rash. He denies any history of similar rash in the past. No close contacts with similar complaints. No recent travel. On admission there was concern for possible vasculitis. He has been placed on prednisone 30 mg daily; he has now had 2 doses. He reports that the lesions are now flat, and he has not developed any new areas in the past couple of days. He denies any involveme nt on the buttocks, back or arms. He does have a few resolving areas on the inferior abdomen. 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 He reports that he is otherwise feeling well. No other complaints today Allergies Allergy/AdvReac Type Severity Reaction Status Date / Time No Known Allergies Allergy Verified 03/12/22 00:15 Home Medications Medication Instructions Recorded Confirmed Type cholecalciferol (vitamin D3) 50 2,000 units PO DAILY #30 caps 12/21/18 03/12/22 History mcg (2,000 unit) capsule cyanocobalamin (vitamin B-12) 1,000 mcg sublingual DAILY 12/21/18 03/12/22 History 1,000 mcg sublingual tablet lisinopril 10 mg tablet 10 mg PO DAILY #90 tabs 05/07/21 03/12/22 Rx metformin 500 mg tablet,extended 1,000 mg PO DAILY #180 tabs 05/07/21 03/12/22 Rx release 24 hr clindamycin phosphate 1 % topical 1 applic topical .COMPLEX #30 grams 03/03/22 03/12/22 Rx gel prednisone 10 mg tablet See Rx Instructions .Route 03/13/22 Rx .COMPLEX #42 tabs Patient History Medical History (Updated 03/13/22 @ 12:43 by Darnell Ogden MD) Colovesical fistula History of diverticulitis Hypertension Impaired glucose tolerance Morbid obesity Vasculitis Surgical History (Updated 03/12/22 @ 03:40 by Guicho Hunter MD) H/O wrist surgery History of colon resection Family History Other Hypertension Denies family history of Ovarian cancer Prostate cancer Breast cancer Colorectal cancer Social History Smoking Status: Never smoker Second Hand Exposure: No; Do You Dip or Chew Tobacco: No; Hx Alcohol Use: Yes Alcohol type: hard liquor Hx Substance Use: No Preferred Language: Latvian Communication Ability: Effective Visual Impairment: No Limitations Hearing Ability: Normal Bacon Stringer Required: No Beliefs That Will Affect Care: None marital status: Single Current Living Situation: Parent current occupational status: employed Other Information That Helps Us Care for You: No Feels Safe at Home: Yes Safety Concerns: Feels Safe At This Time caffeine: Yes Dental Care, Regularly: Yes Seatbelt Use: always Assistive Devices: None Review of Systems Constitutional: no fever, no chills and no body aches Eyes: no eye pain Ear, Nose, Mouth, Throat: no nasal congestion, no mouth lesions and no sore throat Respiratory: no cough and no dyspnea Cardiovascular: no chest pain Gastrointestinal: no abdominal pain, no nausea, no vomiting and no diarrhea/loose stools Genitourinary: no dysuria or no hematuria Musculoskeletal: as per Subjective / HPI Integumentary: as per Subjective / HPI Neurologic: no tingling, no numbness and no headache(s) Hematologic / Lymphatic: no easy bleeding and no easy bruising Physical Exam Physical Exam: General Appearance:Well developed, well-nourished and in no acute distress Psych:Alert, Oriented and Appropriate Skin Type:2 Scalp/Hair:no abnormalities noted. Face:no abnormalities noted. Neck: no abnormalities noted. Right Lower Extremity:scattered resolving, nonpalpable aqafawinpyke-ue-rdihayon macules on the dorsal foot, vasquez, calf, distal thigh Left Lower Extremity:scattered resolving, nonpalpable dvvdevlgajpv-ng-uhmegqhu macules on the dorsal foot, vasquez, calf, distal thigh Back:no abnormalities noted. Right Upper Extremity:no abnormalities noted. Left Upper Extremity:no abnormalities noted. Chest/Breast/Axillae:no abnormalities noted. Abdomen:few resolving nonpalpable, purpuric macules with background post- inflammatory hyperpigmentation on the lower abdomen Nails: no abnormalities noted. Results & Data ([facility]) Vital Signs (Past 12 Hours) Vital Signs Temp Pulse Resp BP Pulse Ox O2 Del Method 03/13/22 11:13 37.1 C 95 H 24 140/80 95 Room Air 03/13/22 08:30 36.7 C 88 16 126/77 96 Room Air Laboratory Results 03/13/22 03/13/22 03/13/22 Range/Units 09:07 09:07 09:07 WBC 13.25 H (4.8-10.8) K/ul RBC 4.75 (4.63-6.08) M/uL Hgb 13.6 L (14.0-18.0) g/dl Hct 39.9 L (40.1-51.0) % MCV 84.0 (80.0-100.0) fL MCH 28.6 (25.0-34.0) pg MCHC 34.1 (32.0-36.0) g/dL RDW Std Deviation 39.3 (36.4-46.3) fL RDW Coeff of Yossi 12.8 (11.5-14.5) % Plt Count 327 (130-400) K/uL MPV 9.8 (9.4-12.4) fL Immature Gran % (Auto) 0.7 % Neut % (Auto) 68.9 % Lymph % (Auto) 21.3 % Gilmer % (Auto) 7.2 % Eos % (Auto) 1.6 % Baso % (Auto) 0.3 % Neut # (Auto) 9.13 H (1.4-6.5) K/uL Lymph # (Auto) 2.82 (1.2-3.4) K/uL Gilmer # (Auto) 0.96 H (0.24-0.82) K/uL Eos # (Auto) 0.21 (0-0.50) K/uL Baso # (Auto) 0.04 (0-0.2) K/uL Immature Gran # (Auto) 0.09 H (0.00-0.02) K/uL ESR 61 H (0-15) mm/hr Sodium 139 (136-145) mmol/L Potassium 3.4 L (3.5-5.1) mmol/L Chloride 106 (98-107) mmol/L Carbon Dioxide 25 (21-32) mmol/L Anion Gap 8 (3-11) BUN 8 (6-23) mg/dl Creatinine 0.75 (0.6-1.4) mg/dl Est Cr Clr Drug Dosing 196.4 ml/min Est GFR ( Amer) 138.7 ml/min Est GFR (Non-Af Amer) 119.7 ml/min BUN/Creatinine Ratio 10.7 (10-20) Glucose 126 H (70-99(Fasting)) mg/dl Calcium 9.3 (8.5-10.1) mg/dl Total Bilirubin 0.7 (0.2-1.0) mg/dl AST 21 (13-39) U/L ALT 31 (7-52) U/L Alkaline Phosphatase 74 (34-104) U/L C-Reactive Protein 12.98 H (0-0.5) mg/dl Total Protein 7.7 (6.0-8.3) gm/dl Albumin 4.0 (3.4-5.0) gm/dl Globulin 3.7 (2.5-4.0) gm/dl Albumin/Globulin Ratio 1.1 (0.9-2) HIV (1&2) Ag & Ab Conf (NON-REACTIVE) Anti-Streptolysin O Ab (<200) IU/mL 03/12/22 03/11/22 Range/Units 05:32 19:20 WBC (4.8-10.8) K/ul RBC (4.63-6.08) M/uL Hgb (14.0-18.0) g/dl Hct (40.1-51.0) % MCV (80.0-100.0) fL MCH (25.0-34.0) pg MCHC (32.0-36.0) g/dL RDW Std Deviation (36.4-46.3) fL RDW Coeff of Yossi (11.5-14.5) % Plt Count (130-400) K/uL MPV (9.4-12.4) fL Immature Gran % (Auto) % Neut % (Auto) % Lymph % (Auto) % Gilmer % (Auto) % Eos % (Auto) % Baso % (Auto) % Neut # (Auto) (1.4-6.5) K/uL Lymph # (Auto) (1.2-3.4) K/uL Gilmer # (Auto) (0.24-0.82) K/uL Eos # (Auto) (0-0.50) K/uL Baso # (Auto) (0-0.2) K/uL Immature Gran # (Auto) (0.00-0.02) K/uL ESR (0-15) mm/hr Sodium (136-145) mmol/L Potassium (3.5-5.1) mmol/L Chloride (98-107) mmol/L Carbon Dioxide (21-32) mmol/L Anion Gap (3-11) BUN (6-23) mg/dl Creatinine (0.6-1.4) mg/dl Est Cr Clr Drug Dosing ml/min Est GFR ( Amer) ml/min Est GFR (Non-Af Amer) ml/min BUN/Creatinine Ratio (10-20) Glucose (70-99(Fasting)) mg/dl Calcium (8.5-10.1) mg/dl Total Bilirubin (0.2-1.0) mg/dl AST (13-39) U/L ALT (7-52) U/L Alkaline Phosphatase (34-104) U/L C-Reactive Protein (0-0.5) mg/dl Total Protein (6.0-8.3) gm/dl Albumin (3.4-5.0) gm/dl Globulin (2.5-4.0) gm/dl Albumin/Globulin Ratio (0.9-2) HIV (1&2) Ag & Ab Conf NON-REACTIVE (NON-REACTIVE) Anti-Streptolysin O Ab <50 (<200) IU/mL Diagnostic Findings Reviewed in [facility]. Medications Administered MAR reviewed. PG Care Time/CCT Total # of Minutes Spent Total Time Spent with Patient: Total time spent is greater than 50% in coordination of care (as documented) at patient's floor/unit and/or counseling patient: Coding Level of Care Code 67971 Inpt Consult Level 2 Diagnoses Vasculitis I77.6
--- NOTE | 2022-03-13 12:48 | Discharge Summary ---
Date of Service March 13, 2022 Admission HPI Per Admitting Provider 36 y/o male w/ morbid obesity, HTN, impaired glucose tolerance, and history of colovesical fistula s/p partial colectomy who presents w/ 10 days of worsening rash of lower extremities. He denies history of similar. Initially, this started as a few red spots on his thighs. He started having more spots down his leg and up his lower abdomen. He denies rash of palms/soles, back, or face. Since 2 days ago, he has had erythema and discomfort from his ankle swelling, worse on right. Patient denies tick exposures, pets, recent travel, medication changes, constitutional symptoms (fever/chills, hot/cold, unintentional weight loss), URI or GI symptoms, sick contact (works as HS teacher), STI concerns, allergen/insect exposure, IVDU, recent immunizations or family history of IBD or blood clots, or autoimmune disease. He otherwise feels at baseline. Denies tobacco, marijuana, or other substance use. Rare etoh. ED course: vanc+ceftriaxone. NSS 1L bolus. Labs notable for leukocytosis 10.04 (03/10)->17.74. Lyme IgM equivocal. Admission Exam Per Admitting Provider General: Grossly A&O. NAD. Cooperative. HEENT: Atraumatic, normocephalic. EOMI. PERRL. Pulm: CTAB. -wheezes, -rales, -rhonchi. No respiratory distress. Cardiac: RRR, -mrg. R ankle w/ 2+ pitting edema. Abdominal: Nontender, nondistended, soft. Integ: Numerous non confluent 5mm-3cm circular palpable petechial vs purpuric lesions of bilateral lower extremity from thighs down to ankles, reportedly sparing groin area. Non-blanching. There is similar rassh of lower abd, but more confluent at that location. No rash of back. No facial or mucosal involvement. R ankle w/ erythema and warmth to touch. Neuro: No focal deficits. Principal Diagnosis Vasculitis Discharge Exam Constitutional WD/WN, vitals as above Eyes PERRL, conjunctivae normal, anicteric sclerae ENMT external ear and nose normal, oropharynx normal Neck trachea midline, no thyromegaly Respiratory normal respiratory effort, lungs clear to auscultation Cardiovascular RRR, no murmur, no edema Gastrointestinal (Abdomen) Inspection/Auscultation: abdomen normal to inspection and + abdominal surgical scar Percussion/Palpation: abdomen soft; abdomen nontender Skin Improving erythema and reduced size of petecheia on legs and abd, reduced swelling noted Discharge Data Allergies Allergy/AdvReac Type Severity Reaction Status Date / Time No Known Allergies Allergy Verified 03/12/22 00:15 Consultations 03/11/22 23:57 ED Decision to Admit Stat 03/12/22 13:39 Consult Dermatology Routine Ordered Studies 03/12/22 02:46 US venous duplex leg [US venous doppler LE RT] Routine Hospital Course (1) Palpable purpura: (1) Palpable purpura: 36 y/o male w/ morbid obesity, HTN, impaired glucose tolerance, and history of colovesical fistula s/p partial colectomy who presents w/ 10 days of worsening palpable petechial/purpuric rash of mainly his bilateral lower extremities, sp aring groin areas and palms/soles. - etiology unknown, but w/ essentially negative relevant histories except of small/large intestinal and bladder fistula, leading differential is autoimmune. 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 for some etiologies, would consider organ involvement; defer echo for now - overall, nonseptic and noninfectious presentation. lower suspicion for RMSF, meningococcemia - w/ mild sinus tach and notable leukocytosis 17s; likely as part of vasculitic inflammatory process - check ESR CRP, MATTIE, ANCA, anti dsdna, calprotectin, folate, b12, RF, RMSF, HIV, hepatitis panel, peripheral smear, urinalysis, did not order STEFANIE, lupus, [employer] SALES [employer], complement ESR CRP WBC elevated - lyme IgM equivocal; lower suspicion per HPI - antistreptolysin O Ab pending - consult rheumatology, stop abx starting prednisone 30mg daily for leukocytoclastic vasculitis taper prednisone over 3 weeks f/u with rheumatology in 1 week - consulted dermatology, agree vasculitis continue prednisone taper (2) Pain and swelling of right lower extremity: - most likely 2/2 vasculitic inflammatory process - venous duplex negative - Initial concern cellulitis. nasal mrsa negative. started vanc+ceftriaxone, dc'd (3) History of colon resection: - per patient, fistulas from small intestine to colon to bladder were 2/2 severe diverticulosis. has since had surgery ~2 years ago and fully recovered - will consider in differential of IBD (4) Hypertension: - hold home lisinopril in setting of higher risk of BLANK in context of possible vasculitis. May resume in outpt (5) Impaired glucose tolerance: - check a1c. hold home metformin. may resume in outpt (2) Pain and swelling of right lower extremity: (3) History of colon resection: (4) Hypertension: (5) Impaired glucose tolerance: Total Time Total Time Spent Total Time Spent (In Minutes): see attending attestation Discharge Plan Discharge Items Patient Disposition: Home - Self-Care Reason For Visit: PALPABLE PETECHIAL AND PURPURIC RASH Discharge Diagnosis: leukocytoclastic vasculitis Activity: Resume your previous activity Non-emergency contact: Primary Care Provider Call non-emergency contact if: you have any medication questions, your symptoms worsen and you have a fever Follow-up/Referrals: Smita Mcgrath CRNP [Primary Care Provider] - Diet: Regular Addtl Attending Provider Instructions: You were admitted to the hospital for a rash on your legs. You were seen by Dermatology, and were determined to have a vasculitis. We treated you with steroids, and your rash improved. Please continue taking Prednisone 30mg for 7 days. After that, take Prednisone 20mg for 7 days. After that, take Prednisone 10mg for 7 days. You have a follow up with Rheumatology this coming Thursday at 8am. A discharge summary will be sent to your primary care physician to ensure continuity of care. Please bring this discharge summary with you to your next office appointment so that your provider can review it at that time. Follow-up appointments: Make a follow-up appointment with your PCP within the next week. It is very important that you follow up with them shortly after discharge from the hospital. Keep all your follow-up appointments as already scheduled. If you cannot make an appointment, notify your provider. Medications: Your medication list has been reviewed and reconciled upon discharge to ensure accuracy and continuity of care. An updated list of all your medications is included with your hospital discharge paperwork. Please review this list closely, and make note of any changes. Take your medications as instructed; do not skip a dose of your medicines. Make sure all of your doctors know every medicine you are taking (including vyyd-eib-pzbfuuz medicines, vitamins, and supplements). Call your primary care provider before taking any new medicines (including cwzt-juh-payifoa medicines, vitamins, and supplements), because some of these may interact with your current medications, or may make your symptoms worse. Tell your primary care provider if you cannot afford your medications. CONTACT YOUR PRIMARY CARE PROVIDER if you experience any of the following: Worsening rash, itching, pain Joint pain, difficulty breathing, increased fatigue Difficulty following your treatment plan, or difficulty taking medications CALL 911 OR GO TO THE EMERGENCY DEPARTMENT if you experience any of the following: Sudden, severe abdominal pain or nausea/vomiting Severe chest pain, or chest pain that radiates (moves) to your jaw or arm Sudden, severe shortness of breath or difficulty breathing Thank you for allowing us to participate in your care. Pending Studies at Discharge: Yes Studies:: Autoimmune workup Stand-Alone Forms: My [facility], Smoking Cessation Medications and DC Order Prescriptions: New prednisone 10 mg tablet See Rx Instructions .ROUTE .COMPLEX Qty: 42 0RF Rx Instructions: Take 3 tabs (30mg) daily for 7 days. Afterwards, take 2 tabs (20mg) for 7 days. After that, take 1 tab (10mg) for 7 tabs. Continued lisinopril 10 mg tablet 10 mg PO DAILY Qty: 90 3RF metformin 500 mg tablet extended release 24 hr 1,000 mg PO DAILY Qty: 180 3RF clindamycin phosphate 1 % gel 1 applic topical .COMPLEX Qty: 30 2RF Rx Instructions: 1 applic topical apply and gently massaginto affected area(s) TID ; cholecalciferol (vitamin D3) 2,000 unit capsule 2,000 units PO DAILY Qty: 30 cyanocobalamin (vitamin B-12) 1,000 mcg tablet, sublingual 1,000 mcg SL DAILY Discharge Orders: Discharge Order (Routine); Ordered 03/13/22 Ordered By: Deepti Pierce Admission Data Admit Date/Time: 03/12/22 01:58 Attending Provider: Nacho Ortega Admit Provider: Guicho Hunter Primary Care Provider: Smita Mcgrath I. Other Providers: Jeny White ; Darnell Ogden Supervising Physician Co-Signing Physician Notes I also saw the patient and confirmed johnson portion of the history and physical examination. I agree with the impression and plan as noted the resident documentation. Patient feels quite well this morning. He had prednisone 30 mg with dinner last night and a second dose with breakfast this morning. Rash is still present although less intense erythema. Exam 140/80, 95, 24, 37.1 He is pleasant alert. No distress is appreciated. Neck is supple. There is no lymphadenopathy in the anterior cervical nor post anterior cervical regions. Mucous membranes are pink and moist. Posterior pharynx appears clear. Heart regular rate and rhythm Respirations are nonlabored and lungs are clear The abdomen is soft and nontender Rash similar to description in yesterday's note, although slightly faded in comparison The mild edema present in both ankles bilaterally yesterday is also improved. Data WBC 13.25 Hemoglobin 13.6 Platelet count 327 ESR 61 CRP 12.98 ASO titer is less than 50 (negative) COVID screen negative MRSA nasal screen negative EBV, CMV titers negative. HIV negative Lyme Western blot pending Hepatitis panel pending Rickettsia pending Rheumatologic panel pending Imaging Venous Doppler of the right lower extremity was negative for DVT Impression and Plan Vasculitis, leukocytoclastic vasculitis Continue prednisone 30 mg p.o. every morning Outpatient appointment with rheumatology 8 AM on Thursday Will follow up on pending results as well and forward to rheumatology Resident Activity Tracking Resident Involvement: Resident Care Provided Care Provided: [facility]
[2022-03-19 00:42] LABS: Anti Nuclear Antibody Screen NEGATIVE (NEGATIVE); Anti-dsDNA Recombinant <1 IU/mL; HBSAG NON-REACTIVE (NON-REACTIVE); Hepatitis A Antibody IgM NON-REACTIVE (NON-REACTIVE); Hepatitis B Core Antibody IgM NON-REACTIVE (NON-REACTIVE); RMSF IgG Ab Not Detected (Not Detected); RMSF IgM Ab Not Detected (Not Detected); Rheumatoid Factor <14 IU/mL (<14)
== END 2022-03-13 14:51 | disposition home or self-care (01) | DRG 607 ==
LOC: ED 18:37 → 3E 03-12 01:58 → SUATTDRO 03-12 01:58 → 3E 03-12 04:23